=== PATIENT | male | born 1965 | race Caucasian/White ===

== ENCOUNTER 2018-02-02 09:44 | Emergency (ER) | payer BC, OTHER ==
[2018-02-02 10:26] LABS: Urine Blood TRACE (NEG); Urine Glucose NEGATIVE (NEG); Urine Protein NEGATIVE (NEG)
[2018-02-02 10:33] LABS: Absolute Lymphocytes (CBC) 4.3 K/uL (0.7-4.9); Absolute Neutrophil 5.5 K/uL (1.8-8.0); Basophils % 1.3 % (0-1.3); Eosinophils % 2.4 % (0-4.4); Hematocrit 47.8 % (39.6-49.0); Lymphocytes % 38.3 % (15.3-44.8); MCH 30.3 pg (27.0-35.0); MCV 89.2 fL (80-100); MPV 7.5 fL (7.6-11.3); Monocytes % 8.9 % (3.3-12.3); RBC Red Blood Cell Count 5.36 M/uL (4.33-5.43)
[2018-02-02 10:44] LABS: Potassium 3.8 mEq/L (3.6-5.0)
[2018-02-02 10:50] LABS: Albumin 4.2 g/dL (3.2-5.5); Bilirubin Direct 0.1 mg/dL (0-0.2); Bilirubin Total 0.4 mg/dL (0.3-1.2); Protein, Total 7.5 g/dL (6.0-8.3)
[2018-02-02 11:00] LABS: Urine Bacteria <20 /HPF (NONE SEEN); Urine Culture Reflex Order NOT NEEDED; Urine RBC <5 /HPF (NONE SEEN)
--- NOTE | 2018-02-02 11:31 | RAD REPORT ---
EXAM DESCRIPTION: CT - Abdomen Pelvis W Contrast - 02/02/2018 11:19 am CLINICAL HISTORY: Abdominal pain since Thursday. One episode diarrhea COMPARISON: none. TECHNIQUE: Computed axial tomography of the abdomen pelvis was obtained. 100 cc Isovue-300 was admin istered intravenously. Oral contrast was not requested which limits evaluation of bowel. All CT scans are performed using dose optimization technique as appropriate and may include automated exposure control or mA/KV adjustment according to patient size. FINDINGS: A 6.2 centimeter lesion is present within the lateral segment of left lobe of the liver. I t demonstrates peripheral enhancement. Spleen, pancreas, adrenal and kidneys appear unremarkable. There is no evidence of diverticulitis. The appendix is normal caliber. Portions of the wall of the colon appear mildly thickened. A small right inguinal hernia contains fat. Postsurgical changes involve the left inguinal region IMPRESSION: Portions of the wall of the colon appear mildly thickened. This may indicate a mild coli tis or be secondary to incomplete distention. A 6.2 centimeter hepatic lesions probably representing a hemangioma. Follow-up abdominal ultrasound i n 3 months is recommended for reassessment.
--- NOTE | 2018-02-02 11:41 | ER ---
Nurse's Notes [facility] Name: Nii Jiang Age: 53 yrs Sex: Male : 1965 Arrival Date: 02/02/2018 Time: 09:49 Bed 15 Private MD: None, None Diagnosis: Abdominal and pelvic pain;Other specified noninfective gastroenteritis and colitis Presentation: 02/02 09:56 Presenting complaint: Patient states: middle abdominal pain that started Thursday, it tw2 comes in waves, when it hits is a 10/10, no n/v, 1 episode of diarrhea thursday. Transition of care: patient was not received from another setting of care. Onset of symptoms was February 02, 2018. Risk Assessment: Do you want to hurt yourself or someone else? Patient reports no desire to harm self or others. Initial Sepsis Screen: Does the patient meet any 2 criteria? No. Patient's initial sepsis screen is negative. Does the patient have a suspected source of infection? No. Patient's initial sepsis screen is negative. Care prior to arrival: None. 09:56 Method Of Arrival: Ambulatory tw2 09:56 Acuity: SAURABH 3 tw2 Historical: - Allergies: 09:57 No Known Allergies; tw2 - PSHx: 09:57 inguinal hernia repair; tw2 - Immunization history:: Adult Immunizations up to date. - Social history:: Smoking status: Patient uses tobacco products, smokes one pack cigarettes per day. - Ebola Screening: : Patient denies travel to an Ebola-affected area in the 21 days before illness onset. Screenin:58 Abuse screen: Denies threats or abuse. Nutritional screening: No deficits noted. tw2 Tuberculosis screening: No symptoms or risk factors identified. Fall Risk None identified. Assessment: 10:05 General: Appears in no apparent distress. Behavior is calm, cooperative, appropriate tw2 for age. Pain: Complains of pain in abdomen. Neuro: Level of Consciousness is awake, alert, obeys commands, Oriented to person, place, time, situation. Cardiovascular: Denies chest pain, shortness of breath, Heart tones S1 S2 Capillary refill < 3 seconds Patient's skin is warm and dry. Respiratory: Airway is patent Respiratory effort is even, unlabored, Respiratory pattern is regular, symmetrical, Breath sounds are clear bilaterally. GI: Abdomen is flat, Bowel sounds present X 4 quads. Abd is soft X 4 quads. : No signs and/or symptoms were reported regarding the genitourinary system. EENT: No signs and/or symptoms were reported regarding the EENT system. Derm: No signs and/or symptoms reported regarding the dermatologic system. Musculoskeletal: Range of motion: intact in all extremities. 10:33 Reassessment: Patient appears in no apparent distress at this time. No changes from tw2 previously documented assessment. Patient and/or family updated on plan of care and expected duration. Pain level reassessed. Patient is alert, oriented x 3, equal unlabored respirations, skin warm/dry/pink. 11:00 Reassessment: Patient appears in no apparent distress at this time. No changes from tw2 previously documented assessment. Patient and/or family updated on plan of care and expected duration. Pain level reassessed. Patient is alert, oriented x 3, equal unlabored respirations, skin warm/dry/pink. 12:02 Reassessment: Patient appears in no apparent distress at this time. No changes from tw2 previously documented assessment. Patient and/or family updated on plan of care and expected duration. Pain level reassessed. Patient is alert, oriented x 3, equal unlabored respirations, skin warm/dry/pink. Vital Signs: 09:55 BP 126 / 96; Pulse 74; Resp 18; Temp 98.5(O); Pulse Ox 97% on R/A; Weight 92.99 kg (R); tw2 Height 5 ft. 11 in. (180.34 cm) (R); Pain 3/10; 10:33 BP 118 / 95; Pulse 67; Resp 17; Pulse Ox 96% on R/A; tw2 11:50 BP 123 / 85; Pulse 66; Resp 17; Pulse Ox 97% on R/A; tw2 09:55 Body Mass Index 28.59 (92.99 kg, 180.34 cm) tw2 09:55 abd pain comes in waves when it hits its a 9 tw2 ED Course: 09:49 Patient arrived in ED. mr 09:49 None, None is Private Physician. mr 09:52 Pepito Roblero MD is Attending Physician. kdr 09:55 Rosalina Brizuela RN is Primary Nurse. tw2 09:55 Arm band placed on. tw2 09:55 Placed in gown. Bed in low position. Pulse ox on. NIBP on. tw2 09:56 Triage completed. tw2 10:06 Inserted saline lock: 20 gauge in right antecubital area, using aseptic technique. jl7 Blood collected. 10:12 Radiology exam delayed due to lab results not completed at this time. (BUN/Creatinine). kw1 10:[address] via wheelchair. sj 11:07 CT completed. Patient tolerated procedure well. Note: iv didn't flush well, started a sj 22g diffusics to lt ac. Patient moved back from CT. 11:10 CT Abd/Pelvis - W/Contrast In Process Unspecified. EDMS 11:39 Roly Guerrero MD is Referral Physician. kdr 12:02 No provider procedures requiring assistance completed. IV discontinued, intact, tw2 bleeding controlled, No redness/swelling at site. Pressure dressing applied. Administered Medications: 11:56 Drug: Flagyl 500 mg Route: PO; tw2 12:02 Follow up: Response: No adverse reaction tw2 11:56 Drug: Cipro 500 mg Route: PO; tw2 12:01 Follow up: Response: No adverse reaction tw2 Outcome: 11:40 Discharge ordered by . kdr 12:03 Discharged to home ambulatory, with significant other. tw2 12:03 Condition: stable 12:03 Discharge instructions given to patient, significant other, Instructed on discharge instructions, follow up and referral plans. the need for admit, medication usage, Demonstrated understanding of instructions, follow-up care, medications, Prescriptions given X 5 12:03 Patient left the ED. tw2 Signatures: Dispatcher [employer] EDDC Pepito Roblero MD MD kdr Kayla Solorio Susan sj Wise, Tara, RN RN tw2 Jay Jay Abreu RN RN jl7 Candelaria Wan kw1
--- NOTE | 2018-02-02 11:41 | EDPHYS ---
Physician Documentation [facility] Name: Nii Jiang Age: 53 yrs Sex: Male : 1965 Arrival Date: 02/02/2018 Time: 09:49 Bed 15 Private MD: None, None ED Physician Pepito Roblero HPI: 02/02 10:10 This 53 yrs old Male presents to ER via Ambulatory with complaints of kdr Abdominal Pain. 10:10 The patient presents with abdominal pain in the epigastric area, that is diffuse. kdr Onset: The symptoms/episode began/occurred gradually, Since Thursday. The symptoms do not radiate. Associated signs and symptoms: none. The symptoms are described as achy, burning, crampy, intermittent, vague, waxing/waning. Modifying factors: The symptoms are alleviated by nothing, the symptoms are aggravated by nothing. Severity of pain: At its worst the pain was moderate severe in the emergency department the pain has improved markedly. The patient has not experienced similar symptoms in the past. The patient has not recently seen a physician. Historical: - Allergies: 09:57 No Known Allergies; tw2 - PSHx: 09:57 inguinal hernia repair; tw2 - Immunization history:: Adult Immunizations up to date. - Social history:: Smoking status: Patient uses tobacco products, smokes one pack cigarettes per day. - Ebola Screening: : Patient denies travel to an Ebola-affected area in the 21 days before illness onset. ROS: 10:10 Constitutional: Negative for fever, chills, and weight loss, Eyes: Negative for injury, kdr pain, redness, and discharge, ENT: Negative for injury, pain, and discharge, Neck: Negative for injury, pain, and swelling, Cardiovascular: Negative for chest pain, palpitations, and edema, Respiratory: Negative for shortness of breath, cough, wheezing, and pleuritic chest pain, Back: Negative for injury and pain, : Negative for injury, bleeding, discharge, and swelling, MS/Extremity: Negative for injury and deformity, Skin: Negative for injury, rash, and discoloration, Neuro: Negative for headache, weakness, numbness, tingling, and seizure activity. Psych: Negative for depression, anxiety, suicide ideation, homicidal ideation, and hallucinations, Allergy/Immunology: Negative for hives, rash, and allergies, Endocrine: Negative for neck swelling, polydipsia, polyuria, polyphagia, and marked weight changes, Hematologic/Lymphatic: Negative for swollen nodes, abnormal bleeding, and unusual bruising. 10:10 Abdomen/GI: Positive for abdominal pain, Negative for nausea and vomiting, had one episode of diarrhea. Exam: 10:10 Constitutional: This is a well developed, well nourished patient who is awake, alert, kdr and in no acute distress. Head/Face: Normocephalic, atraumatic. Eyes: Pupils equal round and reactive to light, extra-ocular motions intact. Lids and lashes normal. Conjunctiva and sclera are non-icteric and not injected. Cornea within normal limits. Periorbital areas with no swelling, redness, or edema. Neck: Trachea midline, no thyromegaly or masses palpated, and no cervical lymphadenopathy. Supple, full range of motion without nuchal rigidity, or vertebral point tenderness. No Meningismus. Chest/axilla: Normal chest wall appearance and motion. Nontender with no deformity. No lesions are appreciated. Cardiovascular: Regular rate and rhythm with a normal S1 and S2. No gallops, murmurs, or rubs. Normal PMI, no JVD. No pulse deficits. Respiratory: Lungs have equal breath sounds bilaterally, clear to auscultation and percussion. No rales, rhonchi or wheezes noted. No increased work of breathing, no retractions or nasal flaring. Back: No spinal tenderness. No costovertebral tenderness. Full range of motion. Skin: Warm, dry with normal turgor. Normal color with no rashes, no lesions, and no evidence of cellulitis. MS/ Extremity: Pulses equal, no cyanosis. Neurovascular intact. Full, normal range of motion. Neuro: Awake and alert, GCS 15, oriented to person, place, time, and situation. Cranial nerves II-XII grossly intact. Motor strength 5/5 in all extremities. Sensory grossly intact. Cerebellar exam normal. Normal gait. Psych: Awake, alert, with orientation to person, place and time. Behavior, mood, and affect are within normal limits. 10:10 Abdomen/GI: Inspection: abdomen appears normal, Bowel sounds: active, all quadrants, Palpation: soft, mild abdominal tenderness, in all quadrants. Vital Signs: 09:55 BP 126 / 96; Pulse 74; Resp 18; Temp 98.5(O); Pulse Ox 97% on R/A; Weight 92.99 kg (R); tw2 Height 5 ft. 11 in. (180.34 cm) (R); Pain 3/10; 10:33 BP 118 / 95; Pulse 67; Resp 17; Pulse Ox 96% on R/A; tw2 11:50 BP 123 / 85; Pulse 66; Resp 17; Pulse Ox 97% on R/A; tw2 09:55 Body Mass Index 28.59 (92.99 kg, 180.34 cm) tw2 09:55 abd pain comes in waves when it hits its a 9 tw2 MDM: 10:10 Data reviewed: vital signs, nurses notes, lab test result(s), radiologic studies. ED kdr course: The patient refused pain medication on my initial interview/exam. 11:40 Patient medically screened. kdr 02/02 10:10 Order name: Basic Metabolic Panel; Complete Time: 10:51 kdr 02/02 10:10 Order name: CBC with Diff; Complete Time: 10:51 kdr 02/02 10:10 Order name: Creatinine for Radiology; Complete Time: 10:51 kdr 02/02 10:10 Order name: Hepatic Function; Complete Time: 10:51 kdr 02/02 10:10 Order name: Lipase; Complete Time: 10:51 kdr 02/02 10:10 Order name: Urine Microscopic Only; Complete Time: 11:25 kdr 02/02 10:10 Order name: IV Saline Lock; Complete Time: 10:11 kdr 02/02 10:10 Order name: Labs collected and sent; Complete Time: 10:11 kdr 02/02 10:10 Order name: Urine Dipstick-Ancillary (obtain specimen); Complete Time: 10:11 kdr 02/02 10:10 Order name: CT Abd/Pelvis - W/Contrast; Complete Time: 11:38 kdr 02/02 10:12 Order name: Urine Dipstick--Ancillary (enter results) bd Administered Medications: 11:56 Drug: Flagyl 500 mg Route: PO; tw2 12:02 Follow up: Response: No adverse reaction tw2 11:56 Drug: Cipro 500 mg Route: PO; tw2 12:01 Follow up: Response: No adverse reaction tw2 Disposition: 02/02/18 11:40 Discharged to Home. Impression: Abdominal and pelvic pain, Other specified noninfective gastroenteritis and colitis. - Condition is Fair. - Discharge Instructions: Abdominal Pain, Adult, [id number]. - Prescriptions for Bentyl 20 mg Oral Tablet - take 1 tablet by ORAL route every 6 hours As needed; 20 tablet. Pepcid 20 mg Oral Tablet - take 1 tablet by ORAL route every 12 hours for 5 days; 10 tablet. Tramadol 50 mg Oral Tablet - take 1 tablet by ORAL route every 8 hours as needed; 12 tablet. Cipro 500 mg Oral Tablet - take 1 tablet by ORAL route every 12 hours for 10 days; 20 tablet. Flagyl 500 mg Oral Tablet - take 1 tablet by ORAL route every 6 hours for 10 days; 40 tablet. - Medication Reconciliation Form, Thank You Letter, Antibiotic Education, Prescription Opioid Use, Work release form, Family Work Release form. - Follow up: Private Physician; When: 2 - 3 days; Reason: If symptoms return, Further diagnostic work-up, Recheck today's complaints, Continuance of care, Re-evaluation by your physician. Follow up: Roly Guerrero MD; When: 2 - 3 days; Reason: If symptoms return, Further diagnostic work-up, Recheck today's complaints, Continuance of care, Re-evaluation by your physician. - Notes: You will need follow-up ultrasound in three months to evaluate a lesion on your liver Signatures: Dispatcher [employer] EDPepito Reyes MD MD kdr Rosalina Brizuela RN RN tw2 Corrections: (The following items were deleted from the chart) 12:03 11:40 02/02/2018 11:40 Discharged to Home. Impression: Abdominal and pelvic pain; Other tw2 specified noninfective gastroenteritis and colitis. Condition is Fair. Forms are Medication Reconciliation Form, Thank You Letter, Antibiotic Education, Prescription Opioid Use. Follow up: Private Physician; When: 2 - 3 days; Reason: If symptoms return, Further diagnostic work-up, Recheck today's complaints, Continuance of care, Re-evaluation by your physician. Follow up: Roly Guerrero; When: 2 - 3 days; Reason: If symptoms return, Further diagnostic work-up, Recheck today's complaints, Continuance of care, Re-evaluation by your physician. kdr
[2018-02-02] MEDS ORDERED: metroNIDAZOLE 500 MG TABLET ONE (11:55)
[2018-02-02] MEDS ORDERED: CIPROFLOXACIN HCL 500 MG TAB ONE (11:55)
== END 2018-02-02 12:03 | disposition home or self-care (01) ==
LOC: ER 09:44
DX: K52.89 Other specified noninfective gastroenteritis and colitis (principal); F17.210 Nicotine dependence, cigarettes, uncomplicated
CPT/HCPCS: 36415; 74177; 80048; 80076; 81003; 81015; 83690; 85025; 99284; Q9967

== ENCOUNTER 2020-12-05 23:37 | Emergency (ER) | payer BC ==
--- OUTSIDE RECORDS SUMMARY | 2020-12-05 23:40 | XMS REPORT | Continuity of Care Document ---
:1965 Author Organization [facility] t Address [address] [place] [address] [address] [place] [address] Care Team Providers Name Role Phone Unavailable Unavailable Unavailable Problems This patient has no known problems. Allergies, Adverse Reactions, Alerts This patient has no known allergies or adverse reactions. Medications This patient has no known medications. Procedures This patient has no known procedures. Results This patient has no known results.
[2020-12-06] MEDS ORDERED: MORPHINE 2 MG/ML SYR ONE (00:36)
[2020-12-06] MEDS ORDERED: dexAMETHasone 10 MG/ML VIAL ONE (00:36)
[2020-12-06] MEDS ORDERED: ONDANSETRON 4 MG/2 ML VIAL ONE (00:37)
[2020-12-06] MEDS ORDERED: KETOROLAC 30 MG/ML INJ ONE (00:37)
[2020-12-06 00:57] LABS: Basophils % 1.3 % (0-1.3); Hematocrit 42.5 % (39.6-49.0); Lymphocytes % 43.8 % (15.3-44.8); MPV 7.6 fL (7.6-11.3); RBC Red Blood Cell Count 4.71 M/uL (4.33-5.43)
[2020-12-06 01:14] LABS: ALT/SGPT 36 U/L (12-78); AST/SGOT 13 U/L (15-37); Albumin 3.7 g/dL (3.4-5.0); Alkaline Phosphatase 93 U/L (45-117); BUN Blood Urea Nitrogen 21 mg/dL (7-18); Bicarbonate 25 mmol/L (21-32); Bilirubin Direct < 0.1 mg/dL (0-0.2); Bilirubin Total 0.2 mg/dL (0.2-1.0); Glucose Level 100 mg/dL (74-106); Magnesium 2.3 mg/dL (1.8-2.4); Protein, Total 6.9 g/dL (6.4-8.2); Sodium Level 141 mmol/L (136-145); Troponin (Emerg Dept Use Only) < 0.02 ng/mL (0.0-0.045)
[2020-12-06 01:36] LABS: Blood Morphology Comment NOT SEEN (NOT SEEN); Platelet Estimate ADEQ
--- NOTE | 2020-12-06 01:39 | ER ---
Nurse's Notes [facility] Name: Nii Jiang Age: 55 yrs Sex: Male : 1965 Arrival Date: 12/05/2020 Time: 23:40 Bed 27 Private MD: Diagnosis: Cervical disc disorder with radiculopathy, unspecified cervical [id number];Pain in left shoulder Presentation: 12/05 23:49 Chief complaint: Patient states: left sided neck pian radiating down left arm, thinks iw it's a pinched nerve. Coronavirus screen: At this time, the client does not indicate any symptoms associated with coronavirus-19. Ebola Screen: Patient negative for fever greater than or equal to 101.5 degrees Fahrenheit, and additional compatible Ebola Virus Disease symptoms Patient denies exposure to infectious person. Patient denies travel to an Ebola-affected area in the 21 days before illness onset. No symptoms or risks identified at this time. Initial Sepsis Screen: Does the patient meet any 2 criteria? No. Patient's initial sepsis screen is negative. Does the patient have a suspected source of infection? No. Patient's initial sepsis screen is negative. Risk Assessment: Do you want to hurt yourself or someone else? Patient reports no desire to harm self or others. Onset of symptoms. 23:49 Method Of Arrival: Ambulatory iw 23:49 Acuity: SAURABH 4 iw 12/06 00:15 Acuity: SAURABH 3 iw Historical: - Allergies: 12/05 23:51 No Known Allergies; iw - Home Meds: 23:51 None [Active]; iw - PMHx: 23:51 None; iw - PSHx: 23:51 Hernia repair; Tonsillectomy; iw - Immunization history:: Adult Immunizations not up to date. - Social history:: Smoking status: Patient reports the use of cigarette tobacco products, smokes one pack cigarettes per day. - Family history:: not pertinent. Screenin/22 00:38 Abuse screen: Denies threats or abuse. Denies injuries from another. Nutritional jm8 screening: No deficits noted. Tuberculosis screening: No symptoms or risk factors identified. Fall Risk None identified. IV access (20 points). Assessment: 00:35 General: Appears uncomfortable, Behavior is calm, cooperative, appropriate for age, jm8 Denies fever, feeling ill, fatigue, chills. Pain: Complains of pain in left shoulder Pain radiates to left arm Pain currently is 10 out of 10 on a pain scale. Neuro: Level of Consciousness is awake, alert, obeys commands, Oriented to person, place, time. Neuro: No deficits noted. Cardiovascular: No deficits noted. Respiratory: No deficits noted. GI: No deficits noted. : No deficits noted. EENT: No deficits noted. Derm: No deficits noted. Musculoskeletal: Reports pain in left shoulder that radiates through left arm. Vital Signs: 12/05 23:49 BP 139 / 98; Pulse 78; Resp 16; Pulse Ox 97% on R/A; Weight 92.99 kg; Height 5 ft. 11 iw in. (180.34 cm); Pain 10/10; 12/06 01:32 BP 128 / 94; Pulse 76; Resp 16; Pulse Ox 97% ; jm8 12/05 23:49 Body Mass Index 28.59 (92.99 kg, 180.34 cm) iw Vitals: 00:39 Cardiac Rhythm Assessment Regular. 8 ED Course: 12/05 23:40 Patient arrived in ED. bp1 23:50 Nick Rodas MD is Attending Physician. pato 23:51 Triage completed. iw 23:52 Arm band placed on. iw 12/06 00:38 No provider procedures requiring assistance completed. Inserted saline lock: 18 gauge jm8 in left antecubital area, using aseptic technique. 00:39 Patient has correct armband on for positive identification. Bed in low position. Call jm8 light in reach. Side rails up X2. Adult w/ patient. 00:51 EKG done, by ED staff, reviewed by Nick Rodas MD. rv 00:57 CT C Spine In Process Unspecified. EDMS 01:06 Shoulder Left (2 View) XRAY In Process Unspecified. EDMS 01:06 XRAY Chest (1 view) In Process Unspecified. EDMS 01:38 Tay Cheng MD is Referral Physician. pato 02:19 IV discontinued, intact, bleeding controlled, No redness/swelling at site. Pressure iw dressing applied. Administered Medications: 00:32 Drug: morphine 2 mg Route: IVP; Site: left antecubital; jm8 02:20 Follow up: Response: No adverse reaction [facility] 00:32 Drug: Zofran (Ondansetron) 4 mg Route: IVP; Site: left antecubital; jm8 02:20 Follow up: Response: No adverse reaction jm8 00:33 Drug: Decadron - Dexamethasone 10 mg Route: IVP; Site: left antecubital; jm8 02:20 Follow up: Response: No adverse reaction jm8 00:34 Drug: TORadol (ketorolac) 30 mg Route: IVP; Site: left antecubital; jm8 02:20 Follow up: Response: No adverse reaction jm8 01:59 Drug: Valium (diazepam) 5 mg Route: PO; jm8 02:19 Follow up: Response: No adverse reaction jm8 Outcome: 01:39 Discharge ordered by MD. whyte 02:19 Discharged to home ambulatory, with family. iw 02:19 Condition: good 02:19 Discharge instructions given to patient, Instructed on discharge instructions, follow up and referral plans. medication usage, Demonstrated understanding of instructions, follow-up care, medications, Prescriptions given X 3. 02:19 Patient left the ED. iw Signatures: Dispatcher [employer] EDMS Nick Rodas MD MD cha Williams, Irene, RN RN Abelino Orellana RN Vania Alejo Joseph, RN RN jm8
--- NOTE | 2020-12-06 01:39 | EDPHYS ---
Physician Documentation [facility] Name: Nii Jiang Age: 55 yrs Sex: Male : 1965 Arrival Date: 12/05/2020 Time: 23:40 Bed 27 Private MD: ED Physician Nick Rodas HPI: 12/06 00:13 This 55 yrs old Male presents to ER via Ambulatory with complaints of Neck pato Pain, >24Hrs Old, Shoulder Pain. 00:13 The patient or guardian complains of decreased range of motion, pain. The symptoms are pato located diffusely. Onset: The symptoms/episode began/occurred 21 day(s) ago. Context: The problem was sustained at an unknown location. Associated signs and symptoms: The patient has no apparent associated signs or symptoms. The pain does not radiate. Modifying factors: The symptoms are alleviated by remaining still, the symptoms are aggravated by movement. Severity of symptoms: At their worst the symptoms were moderate, in the emergency department the symptoms are unchanged. The patient has experienced similar episodes in the past, a few times. Historical: - Allergies: 12/05 23:51 No Known Allergies; iw - Home Meds: 23:51 None [Active]; iw - PMHx: 23:51 None; iw - PSHx: 23:51 Hernia repair; Tonsillectomy; iw - Immunization history:: Adult Immunizations not up to date. - Social history:: Smoking status: Patient reports the use of cigarette tobacco products, smokes one pack cigarettes per day. - Family history:: not pertinent. ROS: 12/06 00:13 Constitutional: Negative for fever, chills, and weight loss, Eyes: Negative for injury, pato pain, redness, and discharge, ENT: Negative for injury, pain, and discharge, Cardiovascular: Negative for chest pain, palpitations, and edema, Respiratory: Negative for shortness of breath, cough, wheezing, and pleuritic chest pain, Abdomen/GI: Negative for abdominal pain, nausea, vomiting, diarrhea, and constipation, Back: Negative for injury and pain, : Negative for injury, bleeding, discharge, and swelling, MS/Extremity: Negative for injury and deformity, Skin: Negative for injury, rash, and discoloration, Neuro: Negative for headache, weakness, numbness, tingling, and seizure, Psych: Negative for depression, anxiety, suicide ideation, homicidal ideation, and hallucinations, Allergy/Immunology: Negative for hives, rash, and allergies, Endocrine: Negative for neck swelling, polydipsia, polyuria, polyphagia, and marked weight changes, Hematologic/Lymphatic: Negative for swollen nodes, abnormal bleeding, and unusual bruising. Neck: Positive for pain with movement, stiffness, tenderness. Exam: 00:13 Constitutional: This is a well developed, well nourished patient who is awake, alert, pato and in no acute distress. Head/Face: Normocephalic, atraumatic. Eyes: Pupils equal round and reactive to light, extra-ocular motions intact. Lids and lashes normal. Conjunctiva and sclera are non-icteric and not injected. Cornea within normal limits. Periorbital areas with no swelling, redness, or edema. ENT: Nares patent. No nasal discharge, no septal abnormalities noted. Tympanic membranes are normal and external auditory canals are clear. Oropharynx with no redness, swelling, or masses, exudates, or evidence of obstruction, uvula midline. Mucous membranes moist. Chest/axilla: Normal chest wall appearance and motion. Nontender with no deformity. No lesions are appreciated. Cardiovascular: Regular rate and rhythm with a normal S1 and S2. No gallops, murmurs, or rubs. Normal PMI, no JVD. No pulse deficits. Respiratory: Lungs have equal breath sounds bilaterally, clear to auscultation and percussion. No rales, rhonchi or wheezes noted. No increased work of breathing, no retractions or nasal flaring. Abdomen/GI: Soft, non-tender, with normal bowel sounds. No distension or tympany. No guarding or rebound. No evidence of tenderness throughout. Back: No spinal tenderness. No costovertebral tenderness. Full range of motion. Male : Normal genitalia with no discharge or lesions. Skin: Warm, dry with normal turgor. Normal color with no rashes, no lesions, and no evidence of cellulitis. Neuro: Awake and alert, GCS 15, oriented to person, place, time, and situation. Cranial nerves II-XII grossly intact. Motor strength 5/5 in all extremities. Sensory grossly intact. Cerebellar exam normal. Normal gait. Psych: Awake, alert, with orientation to person, place and time. Behavior, mood, and affect are within normal limits. 00:13 Neck: External neck: is normal, no acute changes, C-spine: appears grossly normal, no acute changes, Thyroid: appears normal, no acute changes, Trachea: is midline with no obvious abnormalities, no acute changes, ROM/movement: is normal, no acute changes, Lymph nodes: no appreciated lymphadenopathy. Vital Signs: 12/05 23:49 BP 139 / 98; Pulse 78; Resp 16; Pulse Ox 97% on R/A; Weight 92.99 kg; Height 5 ft. 11 iw in. (180.34 cm); Pain 10; 12/06 01:32 BP 128 / 94; Pulse 76; Resp 16; Pulse Ox 97% ; jm8 12/05 23:49 Body Mass Index 28.59 (92.99 kg, 180.34 cm) iw MDM: 12/05 23:50 Patient medically screened. [facility] 12/06 00:16 Differential diagnosis: arthritis, Cervical Disc Herniation Cervical Raiculopathy pato Cervical Spondylosis cervical strain, Degenerative Disc Disease Neck Abrasion Neck Contusion Osteoarthritis Spinal Cord Compression torticollis. Data reviewed: vital signs, nurses notes, lab test result(s), EKG, radiologic studies, CT scan, plain films. Data interpreted: driver examiner: rate is 78 beats/min, rhythm is regular, Pulse oximetry: on room air is 97 %. Test interpretation: by ED physician or midlevel provider: ECG, plain radiologic studies. Counseling: I had a detailed discussion with the patient and/or guardian regarding: the historical points, exam findings, and any diagnostic results supporting the discharge/admit diagnosis, lab results, radiology results, the need for outpatient follow up, for definitive care, a neurologist, a neurosurgeon. 12/06 00:12 Order name: Basic Metabolic Panel [facility] 12/06 00:12 Order name: CBC with Diff pato 12/06 00:12 Order name: LFT's; Complete Time: : [facility] 12/06 00:12 Order name: Magnesium; Complete Time: : [facility] 12/06 00:12 Order name: Troponin (emerg Dept Use Only); Complete Time: 01:37 pato 12/06 00:13 Order name: Basic Metabolic Panel; Complete Time: : [facility] 12/06 00:12 Order name: XRAY Chest (1 view) [facility] 12/06 00:12 Order name: CT C Spine [facility] 12/06 00:12 Order name: Shoulder Left (2 View) XRAY [facility] 12/06 00:13 Order name: CBC with Automated Diff; Complete Time: 01:37 [facility] 12/06 01:02 Order name: Manual Differential; Complete Time: 01:37 [facility] 12/06 00:12 Order name: EKG; Complete Time: 00:14 [facility] 12/06 00:12 Order name: Cardiac monitoring; Complete Time: 00:38 [facility] 12/06 00:12 Order name: EKG - Nurse/Tech; Complete Time: 00:38 [facility] 12/06 00:12 Order name: IV Saline Lock; Complete Time: 00:34 [facility] 12/06 00:12 Order name: Labs collected and sent; Complete Time: 00:34 [facility] 12/06 00:12 Order name: O2 Per Protocol; Complete Time: 00:34 [facility] 12/06 00:12 Order name: O2 Sat Monitoring; Complete Time: 00:34 [facility] 12/06 00:28 Order name: Sling; Complete Time: 01:46 [facility] Administered Medications: 00:32 Drug: morphine 2 mg Route: IVP; Site: left antecubital; jm8 02:20 Follow up: Response: No adverse reaction 8 00:32 Drug: Zofran (Ondansetron) 4 mg Route: IVP; Site: left antecubital; jm8 02:20 Follow up: Response: No adverse reaction jm8 00:33 Drug: Decadron - Dexamethasone 10 mg Route: IVP; Site: left antecubital; jm8 02:20 Follow up: Response: No adverse reaction 8 00:34 Drug: TORadol (ketorolac) 30 mg Route: IVP; Site: left antecubital; jm8 02:20 Follow up: Response: No adverse reaction jm8 01:59 Drug: Valium (diazepam) 5 mg Route: PO; jm8 02:19 Follow up: Response: No adverse reaction 8 Disposition: 12/06/20 01:39 Discharged to Home. Impression: Cervical disc disorder with radiculopathy, unspecified cervical region - C5-C6, Pain in left shoulder. - Condition is Stable. - Discharge Instructions: Cervical Radiculopathy, Herniated Disk, Musculoskeletal Pain, Shoulder Pain, Cryotherapy, [id number], Shoulder Pain, [id number], Cryotherapy. - Prescriptions for dexamethasone 2 mg Oral tablet - take 1 tablet by ORAL route 3 times per day; 15 tablet. Ibuprofen 600 mg Oral Tablet - take 1 tablet by ORAL route every 6 hours As needed take with food; 24 tablet. Tylenol- Codeine #3 300-30 mg Oral Tablet - take 2 tablets by ORAL route every 4-6 hours As needed; 24 tablet. Cyclobenzaprine 5 mg Oral Tablet - take 1 tablet by ORAL route 3 times per day As needed; 15 tablet. - Medication Reconciliation Form, Thank You Letter, Antibiotic Education, Prescription Opioid Use, Work release form form. - Follow up: Private Physician; When: 2 - 3 days; Reason: Recheck today's complaints, Continuance of care, Re-evaluation by your physician. Follow up: Tay Cheng; When: 2 - 3 days; Reason: Recheck today's complaints, Continuance of care, Re-evaluation by your physician. - Problem is new. - Symptoms have improved. Signatures: Dispatcher [employer] EDKS Nick Rodas MD MD cha Williams, Irene, RN RN Hector Ashton RN RN jm8 Corrections: (The following items were deleted from the chart) 02:19 01:39 12/06/2020 01:39 Discharged to Home. Impression: Cervical disc disorder with iw radiculopathy, unspecified cervical region - C5-C6; Pain in left shoulder. Condition is Stable. Discharge Instructions: Cervical Radiculopathy, Herniated Disk, Musculoskeletal Pain, Shoulder Pain, Cryotherapy, [id number], Shoulder Pain, [id number], Cryotherapy. Prescriptions for dexamethasone 2 mg Oral tablet - take 1 tablet by ORAL route 3 times per day; 15 tablet, Ibuprofen 600 mg Oral Tablet - take 1 tablet by ORAL route every 6 hours As needed take with food; 24 tablet, Tylenol-Codeine #3 300-30 mg Oral Tablet - take 2 tablets by ORAL route every 4-6 hours As needed; 24 tablet, Cyclobenzaprine 5 mg Oral Tablet - take 1 tablet by ORAL route 3 times per day As needed; 15 tablet. and Forms are Medication Reconciliation Form, Thank You Letter, Antibiotic Education, Prescription Opioid Use. Follow up: Private Physician; When: 2 - 3 days; Reason: Recheck today's complaints, Continuance of care, Re-evaluation by your physician. Follow up: Tay Cheng; When: 2 - 3 days; Reason: Recheck today's complaints, Continuance of care, Re-evaluation by your physician. Problem is new. Symptoms have improved. pato
[2020-12-06] MEDS ORDERED: DIAZEPAM 5 MG TABLET ONE (02:05)
[2020-12-06 02:25] VITALS: O2SAT 97
[2020-12-06 02:27] VITALS: BP 128/94
--- NOTE | 2020-12-06 07:47 | RAD REPORT ---
EXAM DESCRIPTION: RAD - Chest Single View - 12/06/2020 1:06 am CLINICAL HISTORY: left upper chest wall pain COMPARISON: None TECHNIQUE: AP portable chest image was obtained 12/06/2020 1:06 am . FINDINGS: Lungs are clear. Heart and vasculature are normal. No measurable pleural effusion and no p neumothorax. No gross rib deformity seen. AC joint degenerative changes and left shoulder degenerativ e changes are separately detailed. No acute aortic findings suspected. IMPRESSION: No acute cardiopulmonary process.
--- NOTE | 2020-12-06 07:48 | RAD REPORT ---
EXAM DESCRIPTION: RAD - Shoulder Left 2 View - 12/06/2020 1:06 am CLINICAL HISTORY: PAIN COMPARISON: No comparisons TECHNIQUE: Internal and external rotation views of the left shoulder were obtained. FINDINGS: There is no fracture or dislocation. Mild AC joint degenerative changes are present. No me asurable inferiorly directed spur. There are mild degenerative changes along the undersurface of the acromion and in the superolateral greater tuberosity. Acromial humeral joint space is normal range. T here are no abnormal soft tissue calcifications. No gross scapula or upper chest rib deformity seen. No acute or suspicious findings. IMPRESSION: Negative two-view left shoulder examination for acute findings. Patient does have mild degenerative change at the AC joint and undersurface of the acromion.
--- NOTE | 2020-12-06 11:20 | RAD REPORT ---
EXAM DESCRIPTION: CT - C Spine Wo Con - 12/06/2020 6:35 am CLINICAL HISTORY: The patient is 55 years old and is Male; Pain;Radiculopathy TECHNIQUE: Axial computed tomography images of the cervical spine without intravenous contrast. Sa gittal and coronal reformatted images were created and reviewed. This CT exam was performed using o ne or more of the following dose reduction techniques: automated exposure control, adjustment of th e mA and/or kV according to patient size, and/or use of iterative reconstruction technique. COMPARISON: No relevant prior studies available. FINDINGS: VERTEBRAE: The vertebral body heights and alignment are maintained. There is no acute fr acture. Straightening of the normal cervical curvature is present. DISCS/SPINAL CANAL/NEURAL FORAMINA: Intervertebral disc space narrowing at C5-C6 with mild anter ior osteophyte formation and vacuum disc phenomenon is noted. The remaining intervertebral disc space s are maintained. Mild neural foraminal narrowing on the left at C5-C6 secondary to posterior disc os teophyte complex is present. Minimal facet arthropathy on the left at C4-C5 is present. There is no s ignificant canal stenosis. SOFT TISSUES: The soft tissues are normal. SINUSES: Mucoperiosteal thickening of the ethmoid air cells, sphenoid sinuses, and maxillary sin uses is present. LUNG APICES: The lung apices are clear. IMPRESSION: Minimal spondylosis of the cervical spine as described. Electronically signed by: Quiana Kowalski MD 12/06/2020 1:16 AM CDT Due to temporary technical issues with the PACS/Fluency reporting system, reports are being signed by the in house radiologist without review as a courtesy to ensure prompt reporting. The interpreting r adiologist is fully responsible for the content of the report.
== END 2020-12-06 02:19 | disposition home or self-care (01) ==
LOC: ER 23:37
DX: M50.122 Cervical disc disorder at C5-C6 level with radiculopathy (principal); M25.512 Pain in left shoulder; F17.210 Nicotine dependence, cigarettes, uncomplicated
CPT/HCPCS: 93005; 85025; 80048; 36415; 83735; 80076; 84484; 72125; 71045; 73030; 96375; 96374; 99284; J1100; J2270; J2405